=== PATIENT | female | born 1985 | race Caucasian/White ===

== ENCOUNTER 2022-09-27 13:45 | Emergency (ER) | payer BC ==
[2022-09-27] MEDS ORDERED: traMADol 50 MG Tab ONE (15:20)
[2022-09-27] MEDS ORDERED: Amoxicillin/Clavulanate K 875-125 MG Tab ONE (15:20)
[2022-09-27] MEDS ORDERED: Ciprofloxacin 0.3% Ophth Soln 2.5 ML Bottle ONE (15:20)
== END 2022-09-27 15:25 | disposition home or self-care (01) ==
LOC: LB.ED 13:45
DX: H65.01 Acute serous otitis media, right ear (principal)
CPT/HCPCS: 99282; A9270-GY